=== PATIENT | male | born 1985 | race Two or more races ===

== ENCOUNTER 2021-06-20 21:06 | Emergency (ER) | payer OTHER ==
[~2021-06-20] VITALS: Ht 175.3 cm; Wt 104.3 kg
[2021-06-20 21:07] VITALS: BP 122/76
[2021-06-20] MEDS ORDERED: DONNATAL 5ml ORAL Elix (BELLADONNA ALK-PHENOBARB) PO ONE (21:45)
[2021-06-20] MEDS ORDERED: SODIUM CHLORIDE 0.9% 1,000 ML IVB ONE (21:45)
[2021-06-20] MEDS ORDERED: ALUM & MAG HYDROX-SIMETH LIQ(MAALOX) 30 ML PO ONE (21:45)
[2021-06-20 22:55] LABS: Urine Bacteria NONE SEEN /hpf (None Seen); Urine Blood Negative /uL (Negative); Urine Mucus FEW (None Seen); Urine WBC <1 /hpf (0 - 3)
[2021-06-20 23:10] LABS: Basophils # (auto) 0 10 ^3/uL (0-0.2); Basophils % (auto) 0.4 % (0.0-2.0); Eosinophils # (auto) 0.8 10 ^3/uL (0-0.8); Eosinophils % (auto) 9.1 % (0.0-7.0); Hematocrit 43.1 % (41.0-53.0); Hemoglobin 14.6 g/dL (13.5-17.5); Lymphocytes # (auto) 2.2 10 ^3/uL (0.4-5.4); Lymphocytes % (auto) 24.6 % (10.0-50.0); Mean Corpuscular Hemoglobin 30.4 pg (28.0-32.0); Mean Corpuscular Hgb Conc. 33.8 g/dL (32.0-36.0); Mean Corpuscular Volume 89.9 fL (80.0-100.0); Monocytes # (auto) 0.8 10 ^3/uL (0-1.3); Monocytes % (auto) 8.4 % (0.0-12.0); Neutrophils # (auto) 5.2 10 ^3/uL (1.6-8.6); Neutrophils % (auto) 57.5 % (37.0-80.0); Red Blood Cells 4.79 10^6/uL (4.5-5.90); Red Cell Distribution Width 13.9 % (11.8-14.3)
[2021-06-20 23:26] LABS: Albumin 3.6 g/dL (3.4-5.0); Calcium 8.8 mg/dL (8.5-10.1); Potassium 4.1 mmol/L (3.5-5.1)
[2021-06-20 23:28] LABS: BUN/Creatinine Ratio 16.2
[2021-06-20 23:31] LABS: Bilirubin, Total 0.6 mg/dL (0.2-1.0); Total Protein 7.5 g/dL (6.4-8.2)
[2021-06-20 23:34] LABS: Lactic Acid w/Reflex 2.1 mmol/L (0.4-2.0)
[2021-06-21] MEDS ORDERED: FAMO-12 PO (04:27)
[2021-06-21] MEDS ORDERED: PANT40TA2 PO (05:29)
== END 2021-06-21 05:37 | disposition home or self-care (01) ==
LOC: ER 21:06
DX: K29.70 Gastritis, unspecified, without bleeding (principal)
CPT/HCPCS: 36415; 76705; 80053; 81001; 83605; 83690; 84484; 85025; 96360; 99284; J7030